=== PATIENT | male | born 1980 | race Native Hawaiian/Other Pacific Islander ===

== ENCOUNTER 2017-12-29 21:51 | Emergency (ER) | payer OTHER ==
[~2017-12-29] VITALS: Ht 167.6 cm; Wt 74.4 kg
[2017-12-29 22:51] LABS: PLATELET COUNT 241 K/uL (142-355)
[2017-12-29 22:57] LABS: POTASSIUM 3.8 mmol/L (3.6-5.2)
[2017-12-29 23:28] VITALS: BP 110/88; TEMP 99.1
== END 2017-12-29 23:34 | disposition home or self-care (01) ==
LOC: ED 21:51
DX: J06.9 Acute upper respiratory infection, unspecified (principal)
CPT/HCPCS: 36415; 80053; 85027; 87081; 87804; 87880; 99283

== ENCOUNTER 2018-01-14 11:41 | Emergency (ER) | payer OTHER ==
[~2018-01-14] VITALS: Ht 167.6 cm; Wt 77.1 kg
[2018-01-14 11:50] VITALS: BP 132/90; TEMP 98
== END 2018-01-14 12:33 | disposition left against medical advice (07) ==
LOC: ED 11:41
DX: R42 Dizziness and giddiness (principal)